=== PATIENT | male | born 1985 | race African-American/Black ===

== ENCOUNTER 2017-08-04 19:08 | Inpatient (IN) ==
[2017-08-04 20:04] LABS: BASO% 0.1 % (0.0-0.8); HEMATOCRIT 43.1 % (42.0-52.0); HEMOGLOBIN 14.2 g/dL (14.0-18.0); IMM GRAN# 0.03 X1000 (0.0-0.04); IMM GRAN% 0.2 % (0.0-0.5); LYMPH# 1.27 X1000 (1.2-3.4); LYMPH% 8.6 % (20.5-51.1); MANUAL DIFF NEEDED? YES; MCH 30.2 PG (27-31); MCHC 32.9 g/dL (33-37); MCV 91.7 FL (81-99); MONO# 0.54 X1000 (0.11-0.59); MONO% 3.7 % (1.7-9.3); MPV 10.2 FL (7.4-10.4); NEUT% 87.4 % (42.2-75.2); PLT 380 X1000 (130-400)
[2017-08-04 20:08] LABS: UR AMPHETAMINES QUAL PRESUMPTIVE POSITIVE (NONE DETECT); UR BARBITUATES QUAL NONE DETECTED (NONE DETECT); UR BENZODIAZEPIN QUAL NONE DETECTED (NONE DETECT); UR CANNABINOIDS QUAL NONE DETECTED (NONE DETECT); UR COCAINE QUAL PRESUMPTIVE POSITIVE (NONE DETECT); UR MDMA QUAL PRESUMPTIVE POSITIVE (NONE DETECT); UR METHADONE QUAL NONE DETECTED (NONE DETECT); UR METHAMPHETAMINE QUAL PRESUMPTIVE POSITIVE (NONE DETECT); UR OPIATES QUAL PRESUMPTIVE POSITIVE (NONE DETECT); UR OXYCODONE QUAL PRESUMPTIVE POSITIVE (NONE DETECT); UR PCP QUAL NONE DETECTED (NONE DETECT); UR TCA QUAL NONE DETECTED (NONE DETECT)
[2017-08-04] MEDS ORDERED: LOPRESSOR ONE (20:13)
[2017-08-04] MEDS ORDERED: LOPRESSOR 10 MG in NS 50 ML IV ONE ×3 (20:13→20:30)
[2017-08-04 20:22] LABS: AGAP 13; ALBUMIN 5.2 g/dL (3.5-5.0); ALKALINE PHOSPHATASE 71 U/L (32-122); BUN 10 mg/dL (8-22); CALCIUM 9.5 mg/dL (8.8-10.2); CHLORIDE 99 mmol/L (98-107); COSMO 276; GOT 32 U/L (10-34); GPT 33 U/L (10-44); HYPOCHROM 1+; LYMPHS 8 % (21-51); MONO 4 % (1-9); POTASSIUM 3.7 mmol/L (3.5-5.1); SODIUM 138 mmol/L (136-145); TCO2 26 mmol/L (25-35); TOTAL PROTEIN 8.5 g/dL (6.3-8.3)
[2017-08-04 20:23] LABS: ACETAMINOPHEN < 1.2 ug/mL (10-30)
[2017-08-04] MEDS ORDERED: ASPIRIN ONE (20:32)
[2017-08-04] MEDS ORDERED: ASPIRIN PO ONE (20:32)
[2017-08-04] MEDS ORDERED: ATIVAN ONE (20:32)
[2017-08-04] MEDS ORDERED: ATIVAN IV ONE ×4 (20:32→22:55)
[2017-08-04 20:44] LABS: CK PROFILE 856 U/L (24-204)
[2017-08-04] MEDS ORDERED: ATIVAN IV PRN (20:48)
[2017-08-04] MEDS ORDERED: NS 1,000 ML IV ONE ×2 (20:52→23:41)
[2017-08-04 21:10] LABS: CK INDEX 0.9 (0.0-2.5); CK-MB 7.64 ng/mL (0.0-5.0)
[2017-08-04] MEDS: ATIVAN IV PRN ×3 (21:43→22:19)
[2017-08-04 21:59] LABS: CK-MB 9.89 ng/mL (0.0-5.0)
[2017-08-04] MEDS ORDERED: HALDOL IV ONE (22:01)
[2017-08-04] MEDS ORDERED: QUELICIN IV ONE (23:02)
[2017-08-04] MEDS ORDERED: AMIDATE IV ONE (23:02)
[2017-08-04] MEDS ORDERED: AMIDATE ONE (23:04)
[2017-08-04] MEDS ORDERED: QUELICIN ONE (23:05)
[2017-08-04] MEDS ORDERED: DIPRIVAN 1% 1,000 MG/100 ML BOTTLE ONE (23:14)
[2017-08-04] MEDS ORDERED: ATIVAN 20 MG in NS 190 ML IV SCH ×2 (23:15→23:28)
[2017-08-04] MEDS: DIPRIVAN 1% 1,000 MG/100 ML BOTTLE IV SCH (23:30)
[2017-08-04] MEDS ORDERED: NS 1,000 ML ONE (23:38)
[2017-08-04] MEDS ORDERED: LEVOPHED 8 MG in D5 1/2 NS 250 ML IV SCH (23:45)
[2017-08-04 23:59] LABS: BE -6.4 mmoll (-3.0-3.0); BLOOD TYPE ARTERIAL; DRAW SITE R BRACHIAL; METHB 0.5 % (0.0-1.5); O2(CT) 17.6 mL/dL (15.0-23.0); PO2(98.6) 105 mmHg (60-100); SAMPLE BLOOD; SAO2 100.7 % (95.0-100.0); THB 12.9 g/dL (11.5-17.4)
[2017-08-05 00:03] LABS: pH(98.6) 7.18 (7.35-7.45)
[2017-08-05 00:04] LABS: ALLEN TEST NO; MODALITY CANNULA; PCO2(98.6) 61 mmHg (35-45)
[2017-08-05 01:48] LABS: BE -2.8 mmoll (-3.0-3.0); BLOOD TYPE ARTERIAL; DRAW SITE R BRACHIAL; METHB 1.6 % (0.0-1.5); O2(CT) 17.1 mL/dL (15.0-23.0); PCO2(98.6) 37 mmHg (35-45); PO2(98.6) 67 mmHg (60-100); SAMPLE BLOOD; SAO2 95.5 % (95.0-100.0); SRATE 14 BPM; THB 13.3 g/dL (11.5-17.4); TVOL 600 mL; pH(98.6) 7.38 (7.35-7.45)
[2017-08-05 01:49] LABS: ALLEN TEST NO; MODALITY VENTILATOR
[2017-08-05 02:36] LABS: ACETAMINOPHEN < 1.2 ug/mL (10-30); AGAP 10; ALBUMIN 4.6 g/dL (3.5-5.0); ALKALINE PHOSPHATASE 61 U/L (32-122); BUN 14 mg/dL (8-22); CALCIUM 8.4 mg/dL (8.8-10.2); CHLORIDE 102 mmol/L (98-107); COSMO 265; GOT 69 U/L (10-34); GPT 34 U/L (10-44); POTASSIUM 4.8 mmol/L (3.5-5.1); SODIUM 132 mmol/L (136-145); TCO2 20 mmol/L (25-35); TOTAL PROTEIN 7.5 g/dL (6.3-8.3)
[2017-08-05] MEDS ORDERED: NS 1,000 ML ONE (06:58)
[2017-08-05] MEDS: DIPRIVAN 1% 1,000 MG/100 ML BOTTLE IV SCH ×5 (07:18→22:07)
[2017-08-05] MEDS: NS 1,000 ML IV SCH ×4 (07:18→19:57)
[2017-08-05 08:46] LABS: MANUAL DIFF NEEDED? NO
[2017-08-05 08:51] LABS: BASO% 0.1 % (0.0-0.8); HEMATOCRIT 36.8 % (42.0-52.0); HEMOGLOBIN 11.9 g/dL (14.0-18.0); IMM GRAN# 0.03 X1000 (0.0-0.04); IMM GRAN% 0.2 % (0.0-0.5); LYMPH% 9.4 % (20.5-51.1); MCH 29.8 PG (27-31); MCHC 32.3 g/dL (33-37); MCV 92.2 FL (81-99); MONO# 1.12 X1000 (0.11-0.59); MONO% 8.7 % (1.7-9.3); MPV 9.7 FL (7.4-10.4); NEUT% 81.6 % (42.2-75.2); PLT 270 X1000 (130-400); RBC 3.99 XMIL (4.7-6.1)
[2017-08-05 09:12] LABS: AGAP 8; BUN 13 mg/dL (8-22); CALCIUM 8.5 mg/dL (8.8-10.2); CHLORIDE 106 mmol/L (98-107); COSMO 274; POTASSIUM 4.1 mmol/L (3.5-5.1); SODIUM 137 mmol/L (136-145); TCO2 22 mmol/L (25-35)
[2017-08-05] MEDS: MERREM 1 GM in NS 50 ML IV SCH ×2 (10:15→16:40)
[2017-08-05] MEDS ORDERED: CLINIMIX E 4.25%-5% SOLUTION 1,000 ML IV SCH (15:28)
[2017-08-05] MEDS ORDERED: DULCOLAX PR ONE (15:28)
[2017-08-05] MEDS ORDERED: MERREM ONE (16:47)
[2017-08-06] MEDS: DIPRIVAN 1% 1,000 MG/100 ML BOTTLE IV SCH ×3 (00:52→06:40)
[2017-08-06] MEDS: MERREM 1 GM in NS 50 ML IV SCH ×3 (00:54→16:57)
[2017-08-06] MEDS: NS 1,000 ML IV SCH ×3 (02:13→16:57)
[2017-08-06 05:19] LABS: BE 2.8 mmoll (-3.0-3.0); BLOOD TYPE ARTERIAL; DRAW SITE R BRACHIAL; METHB 1.1 % (0.0-1.5); O2(CT) 18.6 mL/dL (15.0-23.0); PCO2(98.6) 35 mmHg (35-45); PO2(98.6) 100 mmHg (60-100); SAMPLE BLOOD; SAO2 99.3 % (95.0-100.0); SRATE 14 BPM; THB 13.7 g/dL (11.5-17.4); TVOL 600 mL; pH(98.6) 7.48 (7.35-7.45)
[2017-08-06 05:25] LABS: ALLEN TEST NO; MODALITY VENTILATOR
[2017-08-06 05:43] LABS: MANUAL DIFF NEEDED? NO
[2017-08-06 06:09] LABS: AGAP 8; BUN 11 mg/dL (8-22); CALCIUM 8.5 mg/dL (8.8-10.2); CHLORIDE 106 mmol/L (98-107); COSMO 275; POTASSIUM 3.7 mmol/L (3.5-5.1); SODIUM 138 mmol/L (136-145); TCO2 24 mmol/L (25-35)
[2017-08-06 06:12] LABS: BASO% 0.1 % (0.0-0.8); EOS# 0.05 X1000 (0.0-0.7); EOS% 0.5 % (0.0-10.0); HEMATOCRIT 38.7 % (42.0-52.0); HEMOGLOBIN 12.2 g/dL (14.0-18.0); IMM GRAN# 0.02 X1000 (0.0-0.04); IMM GRAN% 0.2 % (0.0-0.5); LYMPH# 1.32 X1000 (1.2-3.4); LYMPH% 12.1 % (20.5-51.1); MCH 29.5 PG (27-31); MCHC 31.5 g/dL (33-37); MCV 93.7 FL (81-99); MONO# 1.16 X1000 (0.11-0.59); MONO% 10.6 % (1.7-9.3); NEUT% 76.5 % (42.2-75.2); PLT 242 X1000 (130-400); RBC 4.13 XMIL (4.7-6.1)
[2017-08-06] MEDS ORDERED: ATIVAN IV PRN (06:41)
[2017-08-06] MEDS ORDERED: ATIVAN 20 MG in NS 190 ML IV SCH (07:00)
[2017-08-06] MEDS ORDERED: DIPRIVAN 1% 1,000 MG/100 ML BOTTLE IV SCH (07:00)
[2017-08-06] MEDS ORDERED: LEVOPHED 8 MG in D5 1/2 NS 250 ML IV SCH (07:00)
[2017-08-06] MEDS: CLINIMIX E 4.25%-5% SOLUTION 1,000 ML IV SCH (07:26)
[2017-08-06] MEDS ORDERED: VASOTEC IV SCH (08:45)
[2017-08-06] MEDS ORDERED: CATAPRES-TTS-2 TD SCH (08:45)
[2017-08-06] MEDS ORDERED: MORPHINE IV ONE (09:45)
[2017-08-06] MEDS ORDERED: MORPHINE IV PRN (09:51)
[2017-08-06] MEDS: LABETALOL IV PRN ×12 (10:06→23:00)
[2017-08-06] MEDS: MORPHINE IV PRN ×2 (13:15→21:07)
[2017-08-06] MEDS ORDERED: BLISTEX MEDICATED BERRY LIP BALM TOP PRN (22:44)
[2017-08-07] MEDS: MERREM 1 GM in NS 50 ML IV SCH ×3 (00:24→16:37)
[2017-08-07] MEDS: CLINIMIX E 4.25%-5% SOLUTION 1,000 ML IV SCH (02:38)
[2017-08-07] MEDS: NS 1,000 ML IV SCH (02:38)
[2017-08-07] MEDS: LABETALOL IV PRN ×9 (02:38→21:17)
[2017-08-07] MEDS: MORPHINE IV PRN ×2 (14:12→20:54)
[2017-08-07] MEDS ORDERED: APRESOLINE IV PRN (21:23)
[2017-08-08] MEDS: MERREM 1 GM in NS 50 ML IV SCH (00:30)
[2017-08-08] MEDS: MORPHINE IV PRN (02:23)
[2017-08-08 04:46] LABS: MANUAL DIFF NEEDED? NO
[2017-08-08 04:49] LABS: BASO% 0.3 % (0.0-0.8); EOS# 0.38 X1000 (0.0-0.7); HEMATOCRIT 42.2 % (42.0-52.0); IMM GRAN% 0.8 % (0.0-0.5); LYMPH# 1.87 X1000 (1.2-3.4); LYMPH% 14.8 % (20.5-51.1); MCH 30.8 PG (27-31); MCHC 33.2 g/dL (33-37); MCV 92.7 FL (81-99); MONO# 0.91 X1000 (0.11-0.59); MONO% 7.2 % (1.7-9.3); MPV 10.9 FL (7.4-10.4); NEUT% 73.9 % (42.2-75.2); PLT 293 X1000 (130-400); RBC 4.55 XMIL (4.7-6.1)
[2017-08-08 05:52] LABS: AGAP 11; BUN 11 mg/dL (8-22); CALCIUM 9.6 mg/dL (8.8-10.2); CHLORIDE 99 mmol/L (98-107); COSMO 275; MAGNESIUM 1.9 mg/dL (1.5-2.7); POTASSIUM 4.2 mmol/L (3.5-5.1); SODIUM 137 mmol/L (136-145); TCO2 27 mmol/L (25-35)
[2017-08-08 07:39] VITALS: BP 136/96
== END 2017-08-08 09:43 | disposition home or self-care (01) ==
LOC: P.ED 19:08 → SUATTDRO 21:07 → P.ICU 21:07 → ICU 08-06 06:39
PROVIDERS: ATTEND Emergency Medicine